=== PATIENT | male | born 1990 | race Two or more races ===

== ENCOUNTER 2021-10-03 15:03 | Inpatient (IN) | payer OTHER ==
--- NOTE | 2021-10-03 16:44 | ED ---
General Adult HPI - General Chief complaint: Psychiatric Symptoms Stated complaint: mental eval, petition Time Seen by Provider: 10/03/21 15:15 Source: patient, police, RN notes reviewed, old records reviewed Mode of arrival: ambulatory Limitations: no limitations - History of Present Illness Initial comments: This is a 31-year-old male who presents emergency Department from the half-way. Patient is petitioned according to the painting manager are with him patient hasn't slept more than 6 hours and also days she's been there. Patient is very argumentative refuses to do anything that they ask and doesn't believe he belongs in half-way and therefore will not do anything that they asked him to do. Patient denies suicidal or homicidal ideations. Patient denies any physical complaints today. - Related Data Allergies Allergy/AdvReac Type Severity Reaction Status Date / Time No Known Allergies Allergy Verified 10/03/21 15:19 Review of Systems ROS Statement: Those systems with pertinent positive or pertinent negative responses have been documented in the HPI. ROS Other: All systems not noted in ROS Statement are negative. Past Medical History Past Medical History: No Reported History Past Surgical History: No Surgical Hx Reported Past Psychological History: No Psychological Hx Reported General Exam - General Exam Comments Initial Comments: GENERAL: Patient is well-developed and well-nourished. Patient is nontoxic and well- hydrated and is in no acute distress. ENT: Neck is soft and supple. No significant lymphadenopathy is noted. Oropharynx is clear. Moist mucous membranes. Neck has full range of motion without eliciting any pain. EYES: The sclera were anicteric and conjunctiva were pink and moist. Extraocular movements were intact and pupils were equal round and reactive to light. Eyelids were unremarkable. PULMONARY: Unlabored respirations. Good breath sounds bilaterally. No audible rales rhonchi or wheezing was noted. CARDIOVASCULAR: There is a regular rate and rhythm without any murmurs gallops or rubs. ABDOMEN: Soft and nontender with normal bowel sounds. SKIN: Skin is clear with no lesions or rashes and otherwise unremarkable. NEUROLOGIC: Patient is alert and oriented x3. Cranial nerves II through XII are grossly intact. Motor and sensory are also intact. Normal speech, volume and content. Symmetrical smile. MUSCULOSKELETAL: Normal extremities with adequate strength and full range of motion. LYMPHATICS: No significant lymphadenopathy is noted PSYCHIATRIC: Patient denies having done anything wrong denies wanting to be in half-way and sometimes when you ask him questions his responses don't make sense. Patient states he refused to let them finger. Him and then he was mad because they didn't get his fingerprints Limitations: no limitations Course Vital Signs 10/03/21 15:15 Temperature 98.1 F Pulse Rate 60 Respiratory 18 Rate Blood Pressure 139/87 O2 Sat by Pulse 100 Oximetry Medical Decision Making - Medical Decision Making EPS has evaluated him and decided to admit the patient - Lab Data Lab Results 10/03/21 Range/Units 16:52 Urine Opiates Screen Not Detected (NotDetected) Ur Oxycodone Screen Not Detected (NotDetected) Urine Methadone Screen Not Detected (NotDetected) Ur Propoxyphene Screen Not Detected (NotDetected) Ur Barbiturates Screen Not Detected (NotDetected) U Tricyclic Antidepress Not Detected (NotDetected) Ur Phencyclidine Scrn Not Detected (NotDetected) Ur Amphetamines Screen Not Detected (NotDetected) U Methamphetamines Scrn Not Detected (NotDetected) U Benzodiazepines Scrn Not Detected (NotDetected) Urine Cocaine Screen Not Detected (NotDetected) U Marijuana (THC) Screen Not Detected (NotDetected) Disposition Clinical Impression: Psychosis Disposition: ADMITTED IP TO THIS [facility] Referrals: None,Stated [Primary Care Provider] - 1-2 days Time of Disposition: 17:58
[2021-10-03 17:23] LABS: Amphetamine Screen,Urine Not Detected (NotDetected); Barbiturate Screen,Urine Not Detected (NotDetected); Benzodiazepines Screen,Urine Not Detected (NotDetected); Cocaine Screen,Urine Not Detected (NotDetected); Methadone Screen, Urine Not Detected (NotDetected); Opiate Screen,Urine Not Detected (NotDetected); Oxycodone Screen, Urine Not Detected (NotDetected); Phencyclidine Screen,Urine Not Detected (NotDetected); Tricyclic Antidepressant,Urine Not Detected (NotDetected); Urn Cannabinoid Scrn Not Detected (NotDetected)
[2021-10-03] MEDS ORDERED: ACETAMINOPHEN TAB 325 MG TAB PO PRN (19:06)
[2021-10-03] MEDS ORDERED: MAGNESIUM HYDROXIDE 2,400 MG/10 ML CUP PO PRN (19:06)
[2021-10-03] MEDS ORDERED: MAG HYDROX/AL HYDROX/SIMETH 30 ML CUP PO PRN (19:06)
[2021-10-03] MEDS ORDERED: HALOPERIDOL LACTATE 5 MG/ML 1 ML VIAL IM PRN (19:06)
[2021-10-03] MEDS ORDERED: LORazepam 1 MG TAB PO PRN (19:06)
[2021-10-03] MEDS ORDERED: haloperidoL 5 MG TAB PO PRN (19:09)
[2021-10-03] MEDS ORDERED: LORazepam 2 MG/ML INJ IM PRN (19:09)
[2021-10-04] MEDS: NICOTINE 14MG/24HR PATCH TRANSDERM SCH (08:36)
--- NOTE | 2021-10-04 14:09 | P.HP ---
Psychiatric H&P - . H&P Date: 10/04/21 History & Physical: Allergies Allergy/AdvReac Type Severity Reaction Status Date / Time No Known Allergies Allergy Verified 10/03/21 18:25 Vital Signs Temp 97.9 F 10/04/21 06:25 Pulse 67 10/04/21 06:25 Resp 18 10/04/21 06:25 BP 135/94 10/04/21 06:25 Pulse Ox 99 10/04/21 06:25 FiO2 Intake & Output 10/03/21 10/04/21 10/04/21 18:59 06:59 18:59 Weight 72.575 kg 72.575 kg Laboratory Last Values Urine Opiates Screen Not Detected (NotDetected) 10/03/21 16:52 Ur Oxycodone Screen Not Detected (NotDetected) 10/03/21 16:52 Urine Methadone Screen Not Detected (NotDetected) 10/03/21 16:52 Ur Propoxyphene Screen Not Detected (NotDetected) 10/03/21 16:52 Ur Barbiturates Screen Not Detected (NotDetected) 10/03/21 16:52 U Tricyclic Antidepress Not Detected (NotDetected) 10/03/21 16:52 Ur Phencyclidine Scrn Not Detected (NotDetected) 10/03/21 16:52 Ur Amphetamines Screen Not Detected (NotDetected) 10/03/21 16:52 U Methamphetamines Scrn Not Detected (NotDetected) 10/03/21 16:52 U Benzodiazepines Scrn Not Detected (NotDetected) 10/03/21 16:52 Urine Cocaine Screen Not Detected (NotDetected) 10/03/21 16:52 U Marijuana (THC) Screen Not Detected (NotDetected) 10/03/21 16:52 Coronavirus (PCR) Not Detected (Not Detectd) 10/03/21 18:04 10/04/21 11:24 IDENTIFYING DATA: Patient is a 31-year-old -Spanish male, who was [facility]. HPI: Patient presented to the hospital yesterday on a petition from a social media director at the prison who states that "inmate is paranoid and states he was kidnapped". It also states that "inmate has been here for 1 week and has not showered and slept less than 8 hours and also not following commands". Patient was evaluated in the ER and apparently was argumentative and endorsed poor sleep and was a poor historian. Patient's UDS was negative. Patient was admitted involuntarily on a petition and certificate and seen today wandering the hallways. Patient was agreeable to speak in the office with director underwriter sales. He was fairly vague guarded and concrete about what happened. He states that "I just got admitted" and states that "they brought me here". He was also bizarre and had a poor attention span. He states that he was "going to get pizza to eat" and states that the restaurant was closed and after pressing for further details patient got frustrated and left the room. Patient did not endorse any auditory or visual hallucinations. He did not endorse any suicidal or homicidal ideations intent or plan. Patient was uncooperative and a poor historian and therefore most of the rest of the history was not able to be gathered today. PAST PSYCHIATRIC HISTORY: Unable to be gathered. PMH: Denies ALLERGIES: as per EMR CHEMICAL DEPENDENCY HISTORY: Denies FAMILY PSYCHIATRIC/SUBSTANCE USE HISTORY: denies SOCIAL HISTORY: Patient is from [place]. Unable to gather the rest of the social history. MENTAL STATUS EXAM: General Appearance: Patient appears to be then, multiple tattoos, stated age is alert, distracted and has poor frustration tolerance and poor attention span. Patient appears to have poor hygiene and grooming. Behavior: Patient is seated without any agitated behavior. Poor attention span. Uncooperative. Guarded. Speech: Patient's speech is fluent and nonpressured. [place] and guarded. Mood/Affect: Patient reports their mood is "fine", affect is constricted. Suicidality/Homicidality: Patient denies having any homicidal ideation intent or plan. Denies any suicidal ideations intent or plan Perceptions: Patient denies any visual hallucinations and denies any auditory hallucinations Though content/process: Vague, concrete and guarded. Memory and concentration: Unable to assess. Patient has poor attention span. Judgment and insight: poor STRENGTHS/WEAKNESSES: strength is that patient is resilient. Weakness is that patient has poor judgment and is impulsive INTELLECT: average IMPRESSIONS: Psychosis unspecified nicotine dependence PLAN: -Patient is admitted under involuntary status to [facility] for stabilization of psychiatric symptoms and safety. Patient has not signed adult voluntary form and medication consent and is placed in patient's chart. A second certification was completed and along with petition will be filed for court. -Medications : Will start patient on invega 3 mg qhs for psychosis. trazodone 50 mg qhs for sleep. -Ativan and Haldol PRN for agitation/aggression -Patient was informed of the risks, benefits and side effects of the medication and patient did not sign med consent form. -Internal Medicine consult to perform medical evaluation and physical. -NRT - nicotine patch -SW on board for discharge planning. Encourage patient to participate in groups to work on coping skills. Will await deferral and court date.
[2021-10-04] MEDS: PALIPERIDONE 3 MG TAB.ER.24 PO SCH (22:00)
[2021-10-04] MEDS: traZODone HCL 50 MG TAB PO SCH (22:00)
--- NOTE | 2021-10-05 00:13 | P.MDCNMH ---
History of Present Illness H&P Date: 10/04/21 Chief Complaint: medical eval 31 year old male no significant medical history patient does not participate in the interview, he denies any concerns , denies any complaints. denies suicidal ideation or homicidal ideation. he does not answer questions with any details. he does not tell me why he came to the hospital the only thing he mentioned is that he believes in GOD, and then asked me to leave the room as he wants to rest. ED documentation , mentioned he was brought in from long-term as he does not cooperate or follow anything he is asked to do. he denies tobacco smoking, illicit drugs , and alcohol use. Review of Systems Pertinent positives as noted in HPI. All other systems were reviewed and are negative Past Medical History Past Medical History: No Reported History History of Any Multi-Drug Resistant Organisms: None Reported Past Surgical History: No Surgical Hx Reported Past Anesthesia/Blood Transfusion Reactions: No Reported Reaction Past Psychological History: No Psychological Hx Reported Smoking Status: Never smoker - Past Family History family Additional Family Medical History / Comment(s): no reported CAD or cancer history Medications and Allergies Home Medications Medication Instructions Recorded Confirmed Type No Known Home Medications 10/03/21 10/03/21 History Allergies Allergy/AdvReac Type Severity Reaction Status Date / Time No Known Allergies Allergy Verified 10/03/21 18:25 Physical Exam Vitals: Vital Signs Temp Pulse Resp BP Pulse Ox 10/04/21 06:25 97.9 F 67 18 135/94 99 patient declined physical exam Constitutional: No acute distress, uncooperative ENMT: NC/AT Skin: no visible wounds, bruises or abdnormalities over exposed portion of the skin Psychiatric: Alert and oriented to person, place and time Cranial Nerve Examination - Cranial Nerves Cranial Nerve I- Olfactory: Intact (patient declined physical exam , no cranial exam done, however system would not allow me to skip this section without making a selection) Cranial Nerve II- Optic: Intact Cranial Nerve III- Oculomotor: Intact Cranial Nerve IV- Trochlear: Intact Cranial Nerve V- Trigeminal: Intact Cranial Nerve - Abducens: Intact Cranial Nerve VII- Facial: Intact Cranial Nerve VIII- Auditory: Intact Cranial Nerve IX- Glossopharyngeal: Intact Cranial Nerve X- Vagus: Intact Cranial Nerve XI- Accessory: Intact Cranial Nerve XII- Hypoglossal: Intact Assessment and Plan Assessment: uncooperative patient management per psych no identifiable medical concerns at this time please contact [facility] if patient is more open to discuss any medical issues follow up labs Thank you for allowing us to participate in the care of this patient. We will follow peripherally. Do not hesitate to contact us with questions. Someone can be reached from the [facility] hospitalist group at all hours of the day at [phone].
[2021-10-05] MEDS: NICOTINE 14MG/24HR PATCH TRANSDERM SCH (08:27)
--- NOTE | 2021-10-05 13:00 | P.PN ---
Progress Note - Text Progress Note Date: 10/05/21 Interval History: Patient was seen today for psychiatric follow-up in his room. Patient appeared to be sleeping her was woken by show card writer. He continues to appear to have poor hygiene and grooming. He was barely concrete and guarded and claims that he did not take the medications. He believes that he does not need medications. He claims that he hears the "voice of God" and appeared to be distracted by the window looking outside. He engaged less with show card writer today and stopped responding to questions as he was staring at the window. At this time patient denies any suicidal or homical ideations, intent or plan. Patient denies any visual hallucinations and denies any paranoia or delusions. Patient is noncompliant with medications. Mental Status Exam: General Appearance: Patient appears to be then, multiple tattoos, stated age is alert, distracted and has poor attention span. Patient appears to have poor hygiene and grooming. Behavior: Patient is seated without any agitated behavior. Poor attention span. Uncooperative. Guarded. Speech: Patient's speech is fluent and nonpressured. [place] and guarded. Mood/Affect: Patient reports their mood is "ok", affect is constricted. Suicidality/Homicidality: Patient denies having any homicidal ideation intent or plan. Denies any suicidal ideations intent or plan Perceptions: Patient denies any visual hallucinations and denies any auditory hallucinations Though content/process: Vague, concrete and guarded. Memory and concentration: Unable to assess. Patient has poor attention span. Judgment and insight: poor IMPRESSIONS: Psychosis unspecified nicotine dependence Plan: -Patient continues to meet criteria for inpatient psychiatric admission for symptom stabilization and safety. Patient has not signed adult voluntary form and medication consent and was placed in patient's chart. -Medications: continue with invega 3 mg qhs for psychosis, Trazodone 50 mg qhs for sleep. patient is not taking medications. -When necessary Ativan and Haldol for agitation/aggression -NRT - [nicotine patch -SW on board for discharge planning. Encouraged the patient to participate in milieu. Currently awaiting deferral with employment law attorney and court date
[2021-10-05] MEDS: PALIPERIDONE 3 MG TAB.ER.24 PO SCH (22:50)
[2021-10-05] MEDS: traZODone HCL 50 MG TAB PO SCH (22:50)
--- NOTE | 2021-10-06 11:13 | P.PN ---
Progress Note - Text Progress Note Date: 10/06/21 Interval History: Patient was seen today for psychiatric follow-up in his room. Patient once ag ain appeared to be sleeping and was awoken by software writer. Patient acknowledges software writer briefly however did not answer any of his questions. She gradually got up out of the bed and turned to face the window and "curtains and looks outside. Patient did not answer any questions and did not follow any commands today. Patient is noncompliant with medications. Mental Status Exam: General Appearance: Patient appears to be then, multiple tattoos, stated age is alert, distracted and has poor attention span. Patient appears to have poor hygiene and grooming. Behavior: Patient is seated without any agitated behavior. Poor attention span. Uncooperative. Speech: Patient's speech is soft, [place] and guarded. Mood/Affect: Unable to assess Suicidality/Homicidality: Unable to assess Perceptions: Unable to assess Though content/process: Unable to assess Memory and concentration: Unable to assess Judgment and insight: poor IMPRESSIONS: Psychosis unspecified nicotine dependence Plan: -Patient continues to meet criteria for inpatient psychiatric admission for symptom stabilization and safety. Patient has not signed adult voluntary form and medication consent and was placed in patient's chart. -Medications: continue with invega 3 mg qhs for psychosis, Trazodone 50 mg qhs for sleep. patient is not taking medications. -When necessary Ativan and Haldol for agitation/aggression -NRT - nicotine patch -SW on board for discharge planning. Encouraged the patient to participate in milieu. patient apparently deferred however did not take his medications last night therefore a demand for hearing will need to be filed.
[2021-10-06] MEDS: PALIPERIDONE 3 MG TAB.ER.24 PO SCH (21:03)
[2021-10-06] MEDS: traZODone HCL 50 MG TAB PO SCH (21:03)
--- NOTE | 2021-10-07 12:07 | P.PN ---
Progress Note - Text Progress Note Date: 10/07/21 Interval History: Patient was seen today for psychiatric follow-up in his room. Patient once ag ain appeared to be sleeping and was awoken by administrative underwriter today. Patient barely acknowledges administrative underwriter by looking at him and then walked towards his window and open the blinds and continued to look out the window. Seed Cleaner attempted several times to engage with patient however patient did not respond to any questions today. Patient is noncompliant with medications. Mental Status Exam: General Appearance: Patient appears to be then, multiple tattoos, stated age is alert, distracted and has poor attention span. Patient appears to have poor hygiene and grooming. Behavior: Patient is seated without any agitated behavior. Poor attention span. Uncooperative. Speech: non verbal today Mood/Affect: Unable to assess Suicidality/Homicidality: Unable to assess Perceptions: Unable to assess Though content/process: Unable to assess Memory and concentration: Unable to assess Judgment and insight: poor IMPRESSIONS: Psychosis unspecified nicotine dependence Plan: -Patient continues to meet criteria for inpatient psychiatric admission for symptom stabilization and safety. Patient has not signed adult voluntary form and medication consent and was placed in patient's chart. -Medications: continue with invega 3 mg qhs for psychosis, Trazodone 50 mg qhs for sleep. patient is not taking medications. -When necessary Ativan and Haldol for agitation/aggression -NRT - nicotine patch -SW on board for discharge planning. Encouraged the patient to participate in milieu. Patient continues to not take his medications, currently awaiting court date.
[2021-10-07] MEDS: traZODone HCL 50 MG TAB PO SCH (20:45)
[2021-10-07] MEDS: PALIPERIDONE 3 MG TAB.ER.24 PO SCH (20:45)
--- NOTE | 2021-10-08 14:56 | P.PN ---
Progress Note - Text Progress Note Date: 10/08/21 Clinical Problems: Unspecified psychotic disorder, rule out schizophrenia, rule out schizoaffective disorder Interim history: I reviewed the medical record and interviewed the patient. The patient would not come out of his room for the interview. He was staring out the window but turned and made eye contact when I entered the room. He provided little information. In response to questions he replied "I'm okay." He does not attend therapeutic groups and activities. He spends his time alone not interacting with staff or peers. He slept 6 hours last night. He is not compliant with prescribed medications. He is had no episodes of behavioral dyscontrol Mental status exam: He presented as a thin cursing groomed Vincent[place] male who was wearing a hospital gown. He made eye contact and appeared to attend to the interview. He was not restless or agitated. His speech was not spontaneous. His affect was her treatment and suspicious. He did not express suicidal ideation, wishes or homicidal ideation. I cannot fully evaluate his thought content her thought process. He appeared to be responding to internal stimuli. Assessment: He is seriously mentally ill and unchanged from admission. He is refusing treatment with antipsychotic medication. Plan: Continue inpatient treatment. Seems precautions. Proceed with involuntary hospitalization. Encourage compliance with prescribed antipsychotic-Invega 3 mg at bedtime. Haldol and her Ativan IM or by mouth for agitation acute psychosis. Encourage participation as tolerated with therapeutic groups and activities. Evaluate clinical status response to treatment daily basis.
[2021-10-08] MEDS: traZODone HCL 50 MG TAB PO SCH (22:26)
[2021-10-08] MEDS: PALIPERIDONE 3 MG TAB.ER.24 PO SCH (22:26)
--- NOTE | 2021-10-09 12:13 | P.PN ---
Progress Note - Text Progress Note Date: 10/09/21 Clinical Problems: Unspecified psychotic disorder, rule out schizophrenia, rule out schizoaffective disorder Interim history: I reviewed the medical record and attempted to interview the patient. The patient would not come out of his room for the interview. He was staring out the window but turned and made eye contact when I entered the room. He provided little information. In response to questions he replied "I'm okay." He does not attend therapeutic groups and activities. He spends his time alone not interacting with staff or peers. He slept 4 hours last night. He refused to take prescribed medications. He is had no episodes of behavioral dyscontrol Mental status exam: He presented as a thin cursing groomed [place] male who was wearing a hospital gown. He made eye contact and appeared to attend to the interview. He was not restless or agitated. His speech was not spontaneous. His affect was her treatment and suspicious. He did not express suicidal ideation, wishes or homicidal ideation. I cannot fully evaluate his thought content her thought process. He appeared to be responding to internal stimuli. Assessment: He is seriously mentally ill and unchanged from admission. He is refusing treatment with antipsychotic medication. Plan: Continue inpatient treatment. Seems precautions. Probate hearing for involuntary admission pending. Encourage compliance with prescribed antipsychotic-Invega 3 mg at bedtime. Haldol and her Ativan IM or by mouth for agitation acute psychosis. Encourage participation as tolerated with therapeutic groups and activities. Evaluate clinical status response to treatment daily basis.
[2021-10-09] MEDS: PALIPERIDONE 3 MG TAB.ER.24 PO SCH (21:26)
[2021-10-09] MEDS: traZODone HCL 50 MG TAB PO SCH (21:26)
--- NOTE | 2021-10-10 10:13 | P.PN ---
Progress Note - Text Progress Note Date: 10/10/21 Interval History: Patient was seen today for psychiatric follow-up in his room. Patient appeared to be in his room and running on the spot. He appeared to be sweating and appeared to be working out/exercising. Patient Carrier attempted several times to communicate with patient however patient ignored him until he finally states "I'm kind of busy here" and stated that he does not want to speak to short story writer today. Patient is noncompliant with medications. Mental Status Exam: General Appearance: Patient appears to be then, multiple tattoos, stated age is alert, distracted and has poor attention span. Patient appears to have poor hygiene and grooming. Behavior: Patient is seated without any agitated behavior. Running on the spot. Poor attention span. Uncooperative. Speech: non verbal today Mood/Affect: Unable to assess Suicidality/Homicidality: Unable to assess Perceptions: Unable to assess Though content/process: Unable to assess Memory and concentration: Unable to assess Judgment and insight: poor IMPRESSIONS: Psychosis unspecified nicotine dependence Plan: -Patient continues to meet criteria for inpatient psychiatric admission for symptom stabilization and safety. Patient has not signed adult voluntary form and medication consent and was placed in patient's chart. -Medications: continue with invega 3 mg qhs for psychosis, Trazodone 50 mg qhs for sleep. patient is not taking medications. -When necessary Ativan and Haldol for agitation/aggression -NRT - nicotine patch -SW on board for discharge planning. Encouraged the patient to participate in milieu. Patient continues to not take his medications, awaiting court date on 10/12.
[2021-10-10] MEDS: PALIPERIDONE 3 MG TAB.ER.24 PO SCH (20:24)
[2021-10-10] MEDS: traZODone HCL 50 MG TAB PO SCH (20:24)
--- NOTE | 2021-10-11 10:39 | P.PN ---
Progress Note - Text Progress Note Date: 10/11/21 Interval History: Patient was seen today for psychiatric follow-up today. [facility] and also security guards. Patient apparently is not directable and not following any commands. Patient appeared to be fairly paranoid and asking to be discharged to go to the "first floor" for them to look at his foot. He states that he is angry and appears to be fairly agitated and pacing around clenching his fists. Patient walked into the [facility] and appeared to be upset that there was a hospital gown and also a blanket on the couch and asked several questions about it and appeared to continue to be pacing around the room and not answering any questions. He is not directable. Patient is flexing and appears to be fairly intimidating and is high likelihood of violence. Manufacturing Engineer Assembly informed nurse to prepare a prn IM for patient today. Patient conitnues to not be taking his medications. Mental Status Exam: General Appearance: Patient appears to be then, multiple tattoos, stated age is alert, distracted and has poor attention span. Patient appears to have fair hygiene and grooming. flexing and pacing in the room. Behavior: Patient is seated without any agitated behavior. flexing his arms, pacing around, paranoid. Poor attention span. Uncooperative. agitated Speech: demanding, fluent. irritable Mood/Affect: Unable to assess Suicidality/Homicidality: Unable to assess Perceptions: Unable to assess Though content/process: illogical, paranoid, demanding. loose associations. Memory and concentration: Unable to assess Judgment and insight: poor/impuslive. IMPRESSIONS: Psychosis unspecified nicotine dependence Plan: -Patient continues to meet criteria for inpatient psychiatric admission for symptom stabilization and safety. Patient has not signed adult voluntary form and medication consent and was placed in patient's chart. -Medications: continue with invega 3 mg qhs for psychosis, Trazodone 50 mg qhs for sleep. patient is not taking medications. patient will receive PRN IM medication due to his agitation, psychosis and unwillingness to be re- directable. -When necessary Ativan and Haldol for agitation/aggression -NRT - nicotine patch -SW on board for discharge planning. Encouraged the patient to participate in milieu. Patient continues to not take his medications, awaiting court date on 10/12.
[2021-10-11] MEDS ORDERED: chlorproMAZINE 25 MG/ML 2 ML AMP IM STA (10:46)
--- NOTE | 2021-10-11 11:55 | P.MHFACE ---
Face to Face Restrain/Seclus - Evaluation Patient's Immediate Situation: Endangers others' safety, Endangers staff safety Patient's Immediate Situation - Comment: patient was paranoid, agitated, aggressive and intimidating to staff and patients. He was not directable and unwilling to take PO meds. He was also bizzare, delusional and threatning. Patient's Reaction to the Intervention: Hostile, Belligerent, Bizarre, Suspicious, Aggressive, Combative, Resistive to care Patient's Reaction to the Intervention - Comment: agitated and combative Patient's Medical & Behavioral Condition: Paranoid, Bizarre behavior Patient's Medical & Behavioral Condition - Comment: he continues to refuse PO medications. Need to Continue or Terminate Restraint or Seclusion: Continue Need to Continue or Terminate Restraint/Seclusion - Comment: initiate restraints at 10:55am Face to Face Eval of Restraint Date: 10/11/21 Face to Face Eval of Restraint Time: 10:55
[2021-10-11] MEDS: traZODone HCL 50 MG TAB PO SCH (20:38)
[2021-10-11] MEDS: PALIPERIDONE 3 MG TAB.ER.24 PO SCH (20:38)
--- NOTE | 2021-10-12 09:43 | P.PN ---
Progress Note - Text Progress Note Date: 10/12/21 Interval History: Patient was seen today for psychiatric follow-up today. Patient was seen today wandering the hallways and barely acknowledge typewriter tester when regular approached him. He did not respond at all and kept on walking. Patient was released from restraints yesterday after receiving 2 IM prn doses, one of haldol and ativan and second of thorazine due to patients aggressive/agitation. Patient apparently is not directable and not following any commands. Mental Status Exam: General Appearance: Patient appears to be well built, multiple tattoos, stated age is alert, distracted and has poor attention span. Patient appears to have fair hygiene and grooming. Behavior: Patient is pacing around, paranoid. Poor attention span. Uncooperative Speech: non verbal today Mood/Affect: Unable to assess Suicidality/Homicidality: Unable to assess Perceptions: Unable to assess Though content/process: unable to assess Memory and concentration: Unable to assess Judgment and insight: poor/impuslive. IMPRESSIONS: Psychosis unspecified, likely schizophrenia nicotine dependence Plan: -Patient continues to meet criteria for inpatient psychiatric admission for symptom stabilization and safety. Patient has not signed adult voluntary form and medication consent and was placed in patient's chart. -Medications: continue with invega 3 mg qhs for psychosis, Trazodone 50 mg qhs for sleep. patient is not taking medications. -When necessary Ativan and Haldol for agitation/aggression -NRT - nicotine patch -SW on board for discharge planning. Encouraged the patient to participate in milieu. Patient continues to not take his medications, awaiting court date for this morning.
[2021-10-12] MEDS: traZODone HCL 50 MG TAB PO SCH ×2 (22:26→22:30)
[2021-10-12] MEDS: PALIPERIDONE 3 MG TAB.ER.24 PO SCH ×2 (22:26→22:30)
[2021-10-13] MEDS ORDERED: flUPHENAZine 2.5 MG/ML (MDV) 10 ML VIAL IM PRN (10:16)
--- NOTE | 2021-10-13 11:43 | P.PN ---
Progress Note - Text Progress Note Date: 10/13/21 Interval History: Patient was seen today for psychiatric follow-up today. Patient was seen today wandering the hallways today and apparenrtly did not go to breakfast. He continues to not respond verbally to report writer and continues to walk away when report writer approached him. Patient apparently is not directable and not following any commands. She continues to not take medications. Mental Status Exam: General Appearance: Patient appears to be well built, multiple tattoos, stated age is alert, distracted and has poor attention span. Patient appears to have fair hygiene and grooming. Behavior: Patient is pacing around, paranoid. Poor attention span. Uncooperative Speech: non verbal today Mood/Affect: Unable to assess Suicidality/Homicidality: Unable to assess Perceptions: Unable to assess Though content/process: unable to assess Memory and concentration: Unable to assess Judgment and insight: poor/impuslive IMPRESSIONS: Psychosis unspecified, likely schizophrenia nicotine dependence Plan: -Patient continues to meet criteria for inpatient psychiatric admission for symptom stabilization and safety. Patient has not signed adult voluntary form and medication consent and was placed in patient's chart. -Medications: continue with invega 3 mg qhs for psychosis with Prolixin IM as back up if patient is refusing invega PO, Trazodone 50 mg qhs for sleep. patient is not taking medications. -When necessary Ativan and Haldol for agitation/aggression -NRT - nicotine patch -SW on board for discharge planning. Encouraged the patient to participate in milieu. Patient was given a court order for mental health treatment on 10/12.
[2021-10-13 12:27] VITALS: BMI 25.0
[2021-10-13] MEDS: PALIPERIDONE 3 MG TAB.ER.24 PO SCH (21:49)
[2021-10-13] MEDS: traZODone HCL 50 MG TAB PO SCH (21:49)
--- NOTE | 2021-10-14 10:30 | P.PN ---
Progress Note - Text Progress Note Date: 10/14/21 Interval History: Patient was seen today for psychiatric follow-up today. Patient was seen lying down in his bed this morning and was turned away from ticket writer. She gradually awoke once ticket writer started to ask patient questions and speak with him. Patient gradually got up out of bed and then went back to bed and closed his eyes and did not respond at all to ticket writer. Patient refused paliperidone last night and was given IM Prolixin as he is currently on a court order. Mental Status Exam: General Appearance: Patient appears to be well built, multiple tattoos, stated age is alert, distracted and has poor attention span. Patient appears to have fair hygiene and grooming. Behavior: Patient is laying in bed. Poor attention span. Uncooperative Speech: non verbal today Mood/Affect: Unable to assess Suicidality/Homicidality: Unable to assess Perceptions: Unable to assess Though content/process: unable to assess Memory and concentration: Unable to assess Judgment and insight: poor/impuslive IMPRESSIONS: Psychosis unspecified, likely schizophrenia nicotine dependence Plan: -Patient continues to meet criteria for inpatient psychiatric admission for symptom stabilization and safety. Patient has not signed adult voluntary form and medication consent and was placed in patient's chart. -Medications: continue with invega 3 mg qhs for psychosis with Prolixin IM as back up if patient is refusing invega PO, increase to invega 3 mg bid for sunday with Prolixin IM as back up if patient is tolerating medications ok. Trazodone 50 mg qhs for sleep. -When necessary Ativan and Haldol for agitation/aggression -NRT - nicotine patch - on board for discharge planning. Encouraged the patient to participate in milieu. Patient was given a court order for mental health treatment on 10/12.
[2021-10-14] MEDS: traZODone HCL 50 MG TAB PO SCH (21:23)
[2021-10-14] MEDS: PALIPERIDONE 3 MG TAB.ER.24 PO SCH (21:23)
--- NOTE | 2021-10-15 20:14 | P.PN ---
Progress Note - Text Progress Note Date: 10/15/21 Interval history: Patient was seen in his room looking out the window. He does not respond to questions, ignores this justowriter operator. He was also seen walking in the hallway earlier today and ignored my attempts to engage him in assessment. Staff reports he has not been engaging in meaningful conversation except occasionally to make his needs known. He is appropriately dressed and is eating his meals in the dining room, but does not engage with staff or peers. He appears to be attending to internal stimuli. He does appear catatonic at this time. He did take his Invega 3 mg last night. Mental status exam: General Appearance: Patient appears to be stated age, dressed in casual attire. Behavior: No agitated behavior. He is avoidant, does not respond to questions, continues to lookout the window. Speech: He does not speak to me. Unable to assess. Mood/Affect: Unable to assess due to lack of cooperation. Suicidality/Homicidality: Unable to assess due to lack of cooperation. Perceptions: He appears to be attending to internal stimuli. Though content/process: He does not speak to me. Unable to assess. Memory and concentration: He does not speak to me. Unable to assess. Judgment and insight: Poor Assessment/Plan: Continue with current diagnosis. Patient continues to meet criteria for inpatient psychiatric admission for symptom stabilization and safety. Increase Invega from 3 mg QHS to 6 mg QHS starting tonight for psychosis. Monitor for medication compliance and for any psychotropic medication side effects. Will continue to monitor ongoing response to treatment. Encouraged participation in milieu.
[2021-10-15] MEDS: PALIPERIDONE 6 MG TAB.ER.24 PO SCH (20:52)
[2021-10-15] MEDS: traZODone HCL 50 MG TAB PO SCH (21:10)
--- NOTE | 2021-10-16 18:09 | P.PN ---
Progress Note - Text Progress Note Date: 10/16/21 Interval history: Patient was seen in his room looking out the window. He continues to be withdrawn, mostly isolates to his room, except for meals. He does not respond to questions, ignores this magnetic tape typewriter operator, and continues to look out the window. Staff reports he has been attending meals, says thank you when given his tray, makes requests known, but otherwise does not interact with staff or peers. He has not showered, is malodorous. He appears to be attending to internal stimuli. He does NOT appear catatonic at this time. He did take his Invega 6 mg last night per APR but there is no improvement seen today, raising concern for medication cheeking. Mental status exam: General Appearance: Patient appears to be stated age, dressed in casual attire, malodorous. Behavior: No agitated behavior. He is avoidant, does not respond to questions, continues to lookout the window. Speech: He does not speak to me. Unable to assess. Mood/Affect: Unable to assess due to lack of cooperation. Suicidality/Homicidality: Unable to assess due to lack of cooperation. Perceptions: He appears to be attending to internal stimuli. Though content/process: He does not speak to me. Unable to assess. Memory and concentration: He does not speak to me. Unable to assess. Judgment and insight: Poor Assessment/Plan: Continue with current diagnosis. Patient continues to meet criteria for inpatient psychiatric admission for symptom stabilization and safety. Continue Invega from 6 mg QHS for psychosis. I have discussed with nurse to monitor for cheeking. Monitor for medication compliance and for any psychotropic medication side effects. Will continue to monitor ongoing response to treatment. Encouraged participation in milieu.
[2021-10-16] MEDS: PALIPERIDONE 6 MG TAB.ER.24 PO SCH (20:41)
[2021-10-16] MEDS: traZODone HCL 50 MG TAB PO SCH ×2 (20:42→21:00)
[2021-10-17] MEDS ORDERED: flUPHENAZine 2.5 MG/ML (MDV) 10 ML VIAL IM PRN (11:27)
--- NOTE | 2021-10-17 11:49 | P.PN ---
Progress Note - Text Progress Note Date: 10/17/21 Interval History: Patient was seen today for psychiatric follow-up today. Landfill Gas Technician (patient started his room and a foul odor was present. Patient was pacing around his room and was ignoring story writer and his questions. Patient eventually turned her story writer and states "I just want my backpack back" and stopped answering any other questions. Apparently patient has been taking his paliperidone pills however minimally responding. he is currently on a court order. Mental Status Exam: General Appearance: Patient appears to be well built, multiple tattoos, stated age is alert, distracted and has poor attention span. Patient appears to have poor hygiene and grooming. Behavior: Patient is walking around his room. Poor attention span. Uncooperative Speech: non verbal today Mood/Affect: Unable to assess Suicidality/Homicidality: Unable to assess Perceptions: Unable to assess Though content/process: unable to assess Memory and concentration: Unable to assess Judgment and insight: poor/impuslive IMPRESSIONS: Psychosis unspecified, likely schizophrenia nicotine dependence Plan: -Patient continues to meet criteria for inpatient psychiatric admission for symptom stabilization and safety. Patient has not signed adult voluntary form and medication consent and was placed in patient's chart. -Medications: Increased invega 3 mg daily + 6 qhs for psychosis with Prolixin IM as back up if patient is refusing invega PO. Trazodone 50 mg qhs for sleep. Please check mouth for cheeking. -When necessary Ativan and Haldol for agitation/aggression -NRT - nicotine patch -SW on board for discharge planning. Encouraged the patient to participate in milieu. Patient was given a court order for mental health treatment on 10/12.
[2021-10-17] MEDS: PALIPERIDONE 3 MG TAB.ER.24 PO SCH ×2 (14:04→21:26)
[2021-10-17] MEDS: traZODone HCL 50 MG TAB PO SCH ×2 (21:26→21:32)
[2021-10-18] MEDS: PALIPERIDONE 3 MG TAB.ER.24 PO SCH ×2 (09:56→20:57)
--- NOTE | 2021-10-18 10:35 | P.PN ---
Progress Note - Text Progress Note Date: 10/18/21 Interval History: Patient was seen today wandering the hallways near the nurse's desk. Patient appeared to have a paper bag in his hand that stated the words "discharged" on it. He pointed to the bag when approached hand sign writer and states "I'm discharged today" and was asking when he can leave the hospital. He appeared to be mildly more directable today during conversation and mildly more engaged. He states that he is taking his medications however claims that "I don't agree with it". He took his morning dose of paliperidone in front of hand sign writer with nurses help and open his mouth to be checked for cheeking. He claims that he is doing "fine" and continues to have very poor insight and judgment. He states that he has not showered and was fairly has attempted to shower again today. Claims that he is eating fairly. He states that he slept about 4 hours last night. He continues to be bizarre and mildly more directable today however continues to be somewhat disorganized. He is denying any auditory or visual hallucinations. Denying any suicidal or homicidal ideations intent or plan. Mental Status Exam: General Appearance: Patient appears to be well built, multiple tattoos, stated age is alert, distracted and has attention span improving mildly. Patient appears to have poor hygiene and grooming. Behavior: Patient is walking around the unit. Improving attention span. Bizarre. Speech: Fluent. [place]. Mood/Affect: Claims that his mood is "okay" and affect is constricted. Suicidality/Homicidality: Denies Perceptions: Denies, not responding to internal stimuli. Though content/process: Poverty of content, superficial. Not endorsing any delusions. Mildly more logical today. Memory and concentration: Alert and oriented 3, improving attention span. Judgment and insight: poor/impuslive, improving mildly IMPRESSIONS: Psychosis unspecified, likely schizophrenia nicotine dependence Plan: -Patient continues to meet criteria for inpatient psychiatric admission for symptom stabilization and safety. Patient has not signed adult voluntary form and medication consent and was placed in patient's chart. -Medications: invega 3 mg daily + 6 qhs for psychosis with Prolixin IM as back up if patient is refusing invega PO. Increase Trazodone 100 mg qhs for sleep. Check mouth for cheeking. If patient continues to repsond minimally to invega then will consider switching to Haldol liquid. -When necessary Ativan and Haldol for agitation/aggression -NRT - nicotine patch -SW on board for discharge planning. Encouraged the patient to participate in milieu. Patient was given a court order for mental health treatment on 10/12. He is still a [facility] hold.
[2021-10-18] MEDS: traZODone HCL 100 MG TAB PO SCH (20:58)
[2021-10-19 09:06] VITALS: BP 141/82; PULSE 105; RESP 16; TEMP 98
[2021-10-19] MEDS: PALIPERIDONE 3 MG TAB.ER.24 PO SCH ×2 (09:06→21:36)
--- NOTE | 2021-10-19 10:31 | P.PN ---
Progress Note - Text Progress Note Date: 10/19/21 Interval History: Patient was seen today laying in his bed and was agreeable to speak to internal communications writer. Patient appears to be more directable during conversation today and more appropriate. He was not responding to internal stimuli. He spoke more about the reason why he came in to the hospital and states that "I was just trying to get pizza". He states that he wasn't "thinking clearly". He claims that now he is more clear and claims that he wants to continue "backpacking". He states that his mood has been improving. He states that he is able sleep better last night and has a fair appetite. He is denying any auditory or visual hallucinations. Denying any suicidal or homicidal ideations intent or plan. Mental Status Exam: General Appearance: Patient appears to be well built, multiple tattoos, stated age is alert, improved attention span. Patient appears to have improving hygiene and grooming. Behavior: Patient is sitting on his bed today. No agitation and was more cooperative. Speech: Fluent. [place]. Mood/Affect: Claims that his mood is "ok" and affect is constricted. Suicidality/Homicidality: Denies Perceptions: Denies, not responding to internal stimuli. Though content/process: Poverty of content, superficial. Not endorsing any delusions. more logical today. Memory and concentration: Alert and oriented 3, improving attention span. Judgment and insight: poor, improving mildly IMPRESSIONS: Psychosis unspecified, likely schizophrenia nicotine dependence Plan: -Patient continues to meet criteria for inpatient psychiatric admission for symptom stabilization and safety. Patient has not signed adult voluntary form and medication consent and was placed in patient's chart. -Medications: invega 3 mg daily + 6 qhs for psychosis with Prolixin IM as back up if patient is refusing invega PO. Trazodone 100 mg qhs for sleep. Check mouth for cheeking. Will give Invega Sustenna loading dose tonight and will be due for next dose in 1 week. -When necessary Ativan and Haldol for agitation/aggression -NRT - nicotine patch -SW on board for discharge planning. Encouraged the patient to participate in milieu. Patient was given a court order for mental health treatment on 10/12. will give [facility] tonight and possibly d/c tomorrow to [facility].
[2021-10-19] MEDS ORDERED: PALIPERIDONE IM 234 MG/1.5 ML SYG IM ONE ×2 (18:00→21:00)
[2021-10-19] MEDS: traZODone HCL 100 MG TAB PO SCH (21:55)
[2021-10-20] MEDS: PALIPERIDONE 3 MG TAB.ER.24 PO SCH (09:30)
--- NOTE | 2021-10-20 12:48 | P.PN ---
Progress Note - Text Progress Note Date: 10/20/21 Interval History: Patient was seen today laying in his bed and was agreeable to speak to news writer. Patient appears to be more directable during conversation today and more appropriate. He was not responding to internal stimuli. He claims that he is doing better overall with regards symptoms. He states that he is thinking "clear today". He continues to ask about his backpack claims that he [facility] to the [facility] and that they will be bringing it to him. He asked about potential discharge today. We spoke about more about the long-acting injection when his court order once again. He continues to have fairly superficial insight and judgment however this is improving. He states that he has been sleeping fairly at nighttime and eating fairly. He states that his mood has been improving. He is denying any auditory or visual hallucinations. Denying any suicidal or homicidal ideations intent or plan. Mental Status Exam: General Appearance: Patient appears to be well built, multiple tattoos, stated age is alert, improved attention span. Patient appears to have improving hygiene and grooming. Behavior: Patient is sitting on his bed today. No agitation and was more cooperative. Speech: Fluent. [place]. Mood/Affect: Claims that his mood is "fine" and affect is constricted. Suicidality/Homicidality: Denies Perceptions: Denies, not responding to internal stimuli. Though content/process: Poverty of content, superficial. Not endorsing any delusions. more logical today. Memory and concentration: Alert and oriented 3, improving attention span. Judgment and insight: poor, improving mildly IMPRESSIONS: Psychosis unspecified, likely schizophrenia nicotine dependence Plan: -Patient continues to meet criteria for inpatient psychiatric admission for symptom stabilization and safety. Patient has not signed adult voluntary form and medication consent and was placed in patient's chart. -Medications:decrease invega 3 mg BID for psychosis with Prolixin IM as back up if patient is refusing invega PO. Trazodone 100 mg qhs for sleep. Check mouth for cheeking. given Invega Sustenna loading dose on 10/19 and tolerated it well, next dose of 156 mg IM to be given in 1 week at [facility] -When necessary Ativan and Haldol for agitation/aggression -NRT - nicotine patch -SW on board for discharge planning. Encouraged the patient to participate in milieu. Patient was given a court order for mental health treatment on 10/12. d/c tomorrow to [facility].
[2021-10-20] MEDS ORDERED: PALIPERIDONE 3 MG TAB.ER.24 PO SCH (21:00)
[2021-10-20] MEDS: traZODone HCL 100 MG TAB PO SCH (21:00)
[2021-10-21] MEDS: PALIPERIDONE 3 MG TAB.ER.24 PO SCH (09:36)
--- NOTE | 2021-10-23 19:23 | P.DS ---
Providers Date of admission: 10/03/21 19:04 Expected date of discharge: 10/21/21 Attending physician: Blane Desouza MD Consults: 10/03/21 19:06 Consult Physician Routine Consulting Provider: Loan Gonzalez Consult Reason/Comments: H and P Do you want consulting provider notified?: Yes Primary care physician: Stated None Hospital Course: Admission HPI: Admission note was completed by "History & Physical: Allergies Allergy/AdvReac Type Severity Reaction Status Date / Time No Known Allergies Allergy Verified 10/03/21 18:25 Vital Signs Temp 97.9 F 10/04/21 06:25 Pulse 67 10/04/21 06:25 Resp 18 10/04/21 06:25 BP 135/94 10/04/21 06:25 Pulse Ox 99 10/04/21 06:25 FiO2 Intake & Output 10/03/21 10/04/21 10/04/21 18:59 06:59 18:59 Weight 72.575 kg 72.575 kg Laboratory Last Values Urine Opiates Screen Not Detected (NotDetected) 10/03/21 16:52 Ur Oxycodone Screen Not Detected (NotDetected) 10/03/21 16:52 Urine Methadone Screen Not Detected (NotDetected) 10/03/21 16:52 Ur Propoxyphene Screen Not Detected (NotDetected) 10/03/21 16:52 Ur Barbiturates Screen Not Detected (NotDetected) 10/03/21 16:52 U Tricyclic Antidepress Not Detected (NotDetected) 10/03/21 16:52 Ur Phencyclidine Scrn Not Detected (NotDetected) 10/03/21 16:52 Ur Amphetamines Screen Not Detected (NotDetected) 10/03/21 16:52 U Methamphetamines Scrn Not Detected (NotDetected) 10/03/21 16:52 U Benzodiazepines Scrn Not Detected (NotDetected) 10/03/21 16:52 Urine Cocaine Screen Not Detected (NotDetected) 10/03/21 16:52 U Marijuana (THC) Screen Not Detected (NotDetected) 10/03/21 16:52 Coronavirus (PCR) Not Detected (Not Detectd) 10/03/21 18:04 08/23/22 11:24 IDENTIFYING DATA: Patient is a 31-year-old -[place] male, who was br ought into the [facility]. HPI: Patient presented to the hospital yesterday on a petition from a social sciences instructor at the [facility] who states that "inmate is paranoid and states he was kidnapped". It also states that "inmate has been here for 1 week and has not showered and slept less than 8 hours and also not following commands". Patient was evaluated in the ER and apparently was argumentative and endorsed poor sleep and was a poor historian. Patient's UDS was negative. Patient was admitted involuntarily on a petition and certificate and seen today wandering the hallways. Patient was agreeable to speak in the office with designer/writer. He was fairly vague guarded and concrete about what happened. He states that "I just got admitted" and states that "they brought me here". He was also bizarre and had a poor attention span. He states that he was "going to get pizza to eat" and states that the restaurant was closed and after pressing for further details patient got frustrated and left the room. Patient did not endorse any auditory or visual hallucinations. He did not endorse any suicidal or homicidal ideations intent or plan. Patient was uncooperative and a poor historian and therefore most of the rest of the history was not able to be gathered today. PAST PSYCHIATRIC HISTORY: Unable to be gathered. PMH: Denies ALLERGIES: as per EMR CHEMICAL DEPENDENCY HISTORY: Denies FAMILY PSYCHIATRIC/SUBSTANCE USE HISTORY: denies SOCIAL HISTORY: Patient is from [place]. Unable to gather the rest of the social history. MENTAL STATUS EXAM: General Appearance: Patient appears to be then, multiple tattoos, stated age is alert, distracted and has poor frustration tolerance and poor attention span. Patient appears to have poor hygiene and grooming. Behavior: Patient is seated without any agitated behavior. Poor attention span. Uncooperative. Guarded. Speech: Patient's speech is fluent and nonpressured. [place] and guarded. Mood/Affect: Patient reports their mood is "fine", affect is constricted. Suicidality/Homicidality: Patient denies having any homicidal ideation intent or plan. Denies any suicidal ideations intent or plan Perceptions: Patient denies any visual hallucinations and denies any auditory hallucinations Though content/process: Vague, concrete and guarded. Memory and concentration: Unable to assess. Patient has poor attention span. Judgment and insight: poor STRENGTHS/WEAKNESSES: strength is that patient is resilient. Weakness is that patient has poor judgment and is impulsive INTELLECT: average IMPRESSIONS: Psychosis unspecified nicotine dependence PLAN: -Patient is admitted under involuntary status to MHU for stabilization of psychiatric symptoms and safety. Patient has not signed adult voluntary form and medication consent and is placed in patient's chart. A second certification was completed and along with petition will be filed for court. -Medications : Will start patient on invega 3 mg qhs for psychosis. trazodone 50 mg qhs for sleep. -Ativan and Haldol PRN for agitation/aggression -Patient was informed of the risks, benefits and side effects of the medication and patient did not sign med consent form. -Internal Medicine consult to perform medical evaluation and physical. -NRT - nicotine patch -SW on board for discharge planning. Encourage patient to participate in groups to work on coping skills. Will await deferral and court date. " Hospital course: Upon admission to the unit patient was uncooperative and guarded, admitted involuntarily on a petition and certificate and a second certificate was completed and faxed with the courts. He was placed on court order for mental health treatment on 10/12/2021. Patient was started on oral Invega and given Invega Sustena 234 mg IM on 10/19/2021. Patient was also seen by medical team for history and physical exam. Throughout the course of the hospitalization patient gradually improved with regards to mood, psychosis, and returned back to their baseline level of functioning. On the day of discharge patient denied any suicidal or homicidal ideation, intent or plan denied any auditory or visual hallucinations. The patient denied any access to guns or weapons. Patient denied any paranoia and did not endorse any delusions. Patient does have a significant history of substance abuse. Patient was also counseled on the medications and need for regular compliance and was encouraged to follow-up with their outpatient appointment for mental health and also for primary care. Mental status exam: General Appearance: Patient appears to be stated age is alert, pleasant, and cooperative. Patient is in no acute distress and has improved hygiene and grooming Behavior: Patient is calmly seated without any agitated behavior. Speech: Patient's speech is fluent and non-pressured. Mood/Affect: Patient reports their mood is "better", affect is congruent and euthymic. Suicidality/Homicidality: Patient denies having any suicidal or homicidal ideat ion intent or plan. Perceptions: Patient denies any auditory or visual hallucinations. Though content/process: There is no evidence of any delusional thought content and thought process is linear and goal-directed. Memory and concentration: AOX3, grossly intact for the purposes of this session. Judgment and insight: Chronically poor, however has improved with guarded prognosis Impression: Schizophrenia Nicotine dependence Plan: -Continue with discharge today as patient has improved and stabilized psychiatrically and is not currently an imminent threat to himself and/or others. -Continue medications: Invega Sustenna 234 mg IM given 10/19/2021 Invega Sustenna 156 mg IM due on 10/26/2021 and every 4 weeks thereafter Invega 3 mg BID for 5 more days then discontinue. Trazodone 100 mg QHS for sleep -Patient was counseled on the need for medication compliance and appropriate follow-up at mental health and also primary care for medical issues. Patient verbalized understanding and agreed. -Social work to arrange for patients follow up appointments for psychiatric care along with follow up with primary care provider. -Patient counseled on abstaining from recreational drugs and marijuana and alcohol. Was informed/educated on the adverse effects on their physical and mental health. -Patient was instructed to return to the hospital or seek immediate medical care if their psychiatric or medical symptoms do worsen or reoccur. Laboratory Results Urine Opiates Screen Not Detected (NotDetected) 10/03/21 16:52 Ur Oxycodone Screen Not Detected (NotDetected) 10/03/21 16:52 Urine Methadone Screen Not Detected (NotDetected) 10/03/21 16:52 Ur Propoxyphene Screen Not Detected (NotDetected) 10/03/21 16:52 Ur Barbiturates Screen Not Detected (NotDetected) 10/03/21 16:52 U Tricyclic Antidepress Not Detected (NotDetected) 10/03/21 16:52 Ur Phencyclidine Scrn Not Detected (NotDetected) 10/03/21 16:52 Ur Amphetamines Screen Not Detected (NotDetected) 10/03/21 16:52 U Methamphetamines Scrn Not Detected (NotDetected) 10/03/21 16:52 U Benzodiazepines Scrn Not Detected (NotDetected) 10/03/21 16:52 Urine Cocaine Screen Not Detected (NotDetected) 10/03/21 16:52 U Marijuana (THC) Screen Not Detected (NotDetected) 10/03/21 16:52 Coronavirus (PCR) Not Detected (Not Detectd) 10/03/21 18:04 Plan - Discharge Summary Discharge Rx Participant: No New Discharge Prescriptions: New Paliperidone IM [Invega Sustenna] 156 mg IM ONCE 7 Days #1 ml Paliperidone [Invega] 3 mg PO BID 5 Days #10 tab traZODone HCL [Desyrel] 100 mg PO HS 30 Days #30 tab Discharge Medication List Paliperidone IM [Invega Sustenna] 156 mg IM ONCE 7 Days #1 ml 10/21/21 [Rx] Paliperidone [Invega] 3 mg PO BID 5 Days #10 tab 10/21/21 [Rx] traZODone HCL [Desyrel] 100 mg PO HS 30 Days #30 tab 10/21/21 [Rx] Follow up Appointment(s)/Referral(s): [facility] [Outside] - 10/21/21 4:00 pm ([facility] [place] [facility]) [facility] [NON-STAFF] - 1 Week Patient Instructions/Handouts: Psychotic Disorder (ED) Activity/Diet/Wound Care/Special Instructions: Avoid the use of street drugs and alcohol. Take all prescriptions as prescribed. When you are in need of refills on your medications, please contact your medical provider and/or outpatient psychiatrist to have this done. Please go to scheduled outpatient appointment for aftercare treatment. If symptoms return or become worse, call the crisis line at and/or go to the nearest emergency room for evaluation.
== END 2021-10-21 15:08 | DRG 885 ==
LOC: EC 15:03 → 3MHU 19:04
PROVIDERS: ADMIT Psychiatry & Neurology Psychiatry; ATTEND Psychiatry & Neurology Psychiatry
DX: F20.9 Schizophrenia, unspecified (principal); T50.906A Underdosing of unspecified drugs, medicaments and biological substances, initial encounter; Z91.128 Patient's intentional underdosing of medication regimen for other reason; Z20.822 Contact with and (suspected) exposure to COVID-19; Z28.310 Unvaccinated for COVID-19; Z71.51 Drug abuse counseling and surveillance of drug abuser; Z71.41 Alcohol abuse counseling and surveillance of alcoholic
CPT/HCPCS: 80306; 82075; 87635; 99285